=== PATIENT | male | born 1985 | race Caucasian/White ===

== ENCOUNTER 2018-02-16 20:02 | Emergency (ER) | payer BC, OTHER ==
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
== END 2018-02-16 20:54 | disposition home or self-care (01) ==
LOC: JP.ED 20:02
DX: L23.7 Allergic contact dermatitis due to plants, except food (principal)
CPT/HCPCS: 99283